=== PATIENT | female | born 1930 | race Caucasian/White ===

== ENCOUNTER 2016-11-08 05:36 | Emergency (ER) | payer BC ==
--- NOTE | ~2016-11-08 | PREOPHP ---
PreOp History and Physical [address] [id number] [facility] [place] [address] NAME: BREANNA HERRERA : 34 STATUS : [facility]#: [id number] AGE: 86 ADM/REG DATE : 11/08/16 MR#: [id number] REPORT SERV DATE: 01/01/17 DICTATED BY: PAOLA ESCOBAR III DATE: 01/01/17 REPORT STATUS : Draft TRANSCRIBED BY: MODRivka DATE: 01/01/17 HISTORY OF PRESENT ILLNESS: This 86-year-old female comes to the operating room for right breast lumpectomy with sentinel lymph node biopsy and possible axillary dissection, for biopsy proven cancer of the right breast. The patient recently had a routine mammogram which showed a suspicious mass in the right breast. 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 The patient has no palpable masses that she is aware of. She has had no nipple discharge. The mass is located at the 1 o'clock position at the right breast. The patient not had a mammogram in many years prior to this. PAST MEDICAL HISTORY: 1. Hypertension. 2. Atrial fibrillation. 3. Diabetes mellitus. 4. Arthritis. 5. Gastroesophageal reflux disease. PAST SURGICAL HISTORY: Status post cardiac ablation. FAMILY HISTORY: Positive for heart disease. MEDICATIONS: Carvedilol, Lasix, Eliquis, losartan, potassium. SOCIAL HISTORY: No history of tobacco or alcohol use. ALLERGIES: TO SULFA DRUGS AND BUMEX. REVIEW OF SYSTEMS: The patient complains of some swelling in her hands and feet, easy bruising. OBJECTIVE/PHYSICAL EXAMINATION: GENERAL: This is a pleasant, somewhat obese female, in no acute distress. She is alert and oriented x3. VITAL SIGNS: Blood pressure 149/67, pulse 64, temperature 96.7. HEENT: Unremarkable. NEURO: Cranial nerves 2 to 12 are normal. LUNGS: Clear. CARDIAC: Normal. ABDOMEN: Soft, nontender. BREASTS: The right breast is remarkable for an area of ecchymosis in the upper outer quadrant of the breast at 1 o'clock position where the biopsy was performed. There are no palpable masses or nodules. The right nipple is normal. No discharge. Right axilla is normal with no adenopathy. The left breast is unremarkable. No palpable masses or nodules. Left nipple is normal. No discharge. The left axilla is normal with no adenopathy. LABORATORY DATA: Recent bilateral mammogram showed an asymmetric density at the 1 o'clock position of the right breast. Ultrasound-directed core needle biopsy of this lesion was PreOp History and Physical [address] [place]. 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 ASSESSMENT: 1. An 86-year-old female with biopsy proven cancer of the right breast. 2. Hypertension. 3. Atrial fibrillation. 4. Diabetes mellitus. 5. History of congestive heart failure. PLAN: The patient comes to the operating room now for right breast lumpectomy with stereotactic wire localization, sentinel lymph node biopsy, and possible axillary dissection, if her sentinel lymph node is found to contain malignancy. This procedure, the risks, benefits, and alternatives, including but not limited to the risk for bleeding, infection, pain, swelling, scarring, deformity to the breast, seroma formation, hematoma formation, nerve injury, chronic paresthesia, pain in the arm, shoulder, or axilla, chronic lymphedema of the arm, nerve injuries, muscle weakness, or paralysis muscles of upper back or shoulder, chronic distortion of the breast, change in size of the breast, deformity to the breast, possible need to return to the operating room for completion of axillary dissection or wider excision if there is discrepancy between the frozen section and final pathology report, and unforeseen complications including deep venous thrombosis, pulmonary embolus, myocardial infarction, stroke, pneumonia, and , have been explained to the patient and family prior to surgery. The option of mastectomy as an alternative to lumpectomy has been offered, but declined. The patient's questions have been answered. She clearly understands the risks and agrees to surgery as planned. JOEY/NAVEEN Paola Escobar III, M.D. / [id number] CC: Ej Hewitt M.D.
[~2016-11-08 05:36] MED LIST: CARDCD180 PO; COR20 PO; CORDARONE PO; COREG6 PO; DIOV160 PO; ELIQUIS 5 MG TAB5 MG PO; JANTOVEN2 MG PO; JANTOVEN3 MG PO; KDUR20 PO; L20 PO; PRILO PO; PRIN5 PO; RYTHMOL300 MG PO; ZYRTEC ALLGY10 MG PO
[2016-11-08 07:00] LABS: BASOPHILS 0.4 %; BASOPHILS ABSOLUTE 0.03 10/3/uL (0.0-0.16); EOSINOPHILS 2.5 %; EOSINOPHILS ABSOLUTE 0.18 10/3/uL (0.0-0.53); HEMATOCRIT 39.8 % (36.0-48.0); IMMATURE GRANULOCYTES 0.1 %; IMMATURE GRANULOCYTES ABSOLUTE 0.01 10/3/uL (0.0-0.11); LYMPHOCYTES 19.9 %; LYMPHOCYTES ABSOLUTE 1.43 10/3/uL (0.67-4.30); MEAN CORPUS HGB CONC 32.7 g/dL (32.0-36.0); MEAN CORPUSCULAR HEMOGLOB 27.5 pg (26.0-34.0); MEAN CORPUSCULAR VOLUME 84.3 fL (80-100); MEAN PLATELET VOLUME 9.2 fL (9.2-13.0); MONOCYTES 5.6 %; NEUTROPHILS 71.5 %; NEUTROPHILS ABSOLUTE 5.13 10/3/uL (2.02-8.40); PLATELET COUNT 269 10/3/uL (150-400); RBC DISTRIBUTION WIDTH 13.8 % (12.0-16.0); RED CELL COUNT 4.72 10/6/uL (4.0-5.6); WHITE BLOOD CELLS 7.2 10/3/uL (4.5-10.5)
[2016-11-08 07:04] LABS: MANUAL DIFF NO %
[2016-11-08 07:15] LABS: BUN (BLOOD UREA NITROGEN) 20 MG/DL (6-23); CHEST PAIN PROFILE TAT 0 Hrs 21 Mins; CHLORIDE, SERUM 109 MMOL/L (96-112); CO2 (CARBON DIOXIDE) 28 MMOL/L (24-34); GFR AFRICAN AMERICAN 60 ML/MIN (>=60); GFR NON AFRICAN AMERICAN 52 ML/MIN (>=60); GLUCOSE, SERUM 138 MG/DL (60-99); POTASSIUM, SERUM 4.2 MMOL/L (3.5-5.3); SODIUM, SERUM 143 MMOL/L (135-148); TROPONIN I <0.02 NG/ML (<0.05)
[2016-11-08 07:25] LABS: INTERNATIONAL NORMAL RATI 1.4 UNITS (-); PARTIAL THROMBO TIME 34.2 SEC (22.5-37.2); PROTIME (NOT ORD) 16.8 SEC (12.0-14.5)
[2017-01-15] MEDS ORDERED: COZ50 PO (09:09)
== END 2016-11-08 08:38 | disposition home or self-care (01) ==
LOC: ER 05:36
PROVIDERS: Specialist
DX: R07.89 Other chest pain (principal); I10 Essential (primary) hypertension; I48.91 Unspecified atrial fibrillation; Z90.49 Acquired absence of other specified parts of digestive tract; Z90.710 Acquired absence of both cervix and uterus; Z88.2 Allergy status to sulfonamides; Z88.6 Allergy status to analgesic agent; Z79.899 Other long term (current) drug therapy
CPT/HCPCS: 71010; 80048; 83735; 84484; 85025; 85610; 85730; 93005; 99285; A9270-GY